=== PATIENT | male | born 1950 | race Caucasian/White ===

== ENCOUNTER 2016-11-03 14:15 | Inpatient (IN) | payer OTHER ==
[2017-02-22 11:30] LABS: % IMMATURE GRANULYOCYTES 1.2 % (0.0-1.1); ABSOLUTE IMMATURE GRANULOCYTES 0.07 10^3/uL (0.00-0.10); ADD DIFF? NO; ADD MORPH? NO; ADD SCAN? NO; ATYPICAL LYMPHOCYTE FLAG 0 (0-99); FRAGMENT RBC FLAG 0 (0-99); HEMATOCRIT 46.1 % (40.0-51.0); HEMOGLOBIN 16.1 g/dL (13.7-17.5); LEFT SHIFT FLG 10 (0-99); LIPEMIA HEMOLYSIS FLAG 90 (0-99); MEAN CELL HEMOGLOBIN 30.4 pg (27.9-34.1); MEAN CELL HEMOGLOBIN CONCENTR. 34.9 g/dL (32.4-36.7); MEAN CELL VOLUME 87.1 fL (81.5-99.8); MEAN PLATELET VOLUME 9.7 fL (8.7-11.7); PLATELET CLUMPS FLAG 0 (0-99); PLATELET COUNT 141 10^3/uL (150-400); RED BLOOD CELL COUNT 5.29 10^6/uL (4.40-6.38); RED CELL DISTRIBUTION WIDTH 13.7 % (11.5-15.2)
[2017-03-11] MEDS ORDERED: TRANEXAMIC ACID 3,000 MG in NS 50 ML IRR ONE (06:00)
[2017-03-11] MEDS ORDERED: ROPIVACAINE 0.2% 80 MG, EPINEPHrine 0.2 MG, KETOROLAC TROMETHAMINE 30 MG in BAG 0 ML IU ONE (06:00)
[2017-03-11] MEDS ORDERED: VANCOMYCIN 1 GM VIAL ONE (06:57)
[2017-03-11] MEDS ORDERED: TRANEXAMIC ACID 3,000 MG/50 ML BAG IRR ONE (06:57)
--- NOTE | 2017-03-11 08:16 | PDHPUP ---
History & Physical Update H&P update statement: This history and physical update is based on an assessment of the patient which was completed after admission or registration (within 24 hours), but prior to the surgery/procedure. H&P update: H&P reviewed & patient examined, no change in patient's condition since H&P completed
[2017-03-11] MEDS ORDERED: DEXAMETHASONE 4 MG/ML VIAL IVP ONE (08:35)
[2017-03-11] MEDS ORDERED: LR 1,000 ML IV ONE (08:35)
[2017-03-11] MEDS ORDERED: FAMOTIDINE 20 MG TAB PO ONE (08:35)
[2017-03-11] MEDS ORDERED: ACETAMINOPHEN 325 MG TAB PO ONE (08:35)
[2017-03-11] MEDS ORDERED: LIDOCAINE 1% 2 ML INJ ID PRN (08:35)
[2017-03-11] MEDS ORDERED: ceFAZolin 2 GM/DEXTROSE 100 ML IV ONE (08:35)
--- NOTE | 2017-03-11 09:54 | PDANEPAE ---
ANE History of Present Illness left knee osteoarthritis ANE Past Medical History - Cardiovascular History Hx Hypertension: Yes Hx Arrhythmias: No Hx Chest Pain: No Hx Coronary Artery / Peripheral Vascular Disease: No Hx CHF / Valvular Disease: No Hx Palpitations: No - Pulmonary History Hx COPD: No Hx Asthma/Reactive Airway Disease: No Hx Recent Upper Respiratory Infection: No Hx Oxygen in Use at Home: No Hx Sleep Apnea: Yes Sleep Apnea Screening Result - Last Documented: Positive Pulmonary History Comment: CPAP MACHINE NO 02 BLEED - Neurologic History Hx Cerebrovascular Accident: No Hx Seizures: No Hx Dementia: No Neurologic History Comment: TIA FEB 2014 - Endocrine History Hx Diabetes: No - Renal History Hx Renal Disorders: Yes Renal History Comment: BLADDER PROBLEMS. OAP TREATED WITH BOTOX. PT SELF CATHS 3 X DAILY - Liver History Hx Hepatic Disorders: No - Neurological & Psychiatric Hx Hx Neurological and Psychiatric Disorders: Yes Neurological / Psychiatric History Comment: DEPRESSION, ANXIETY. - Cancer History Hx Cancer: No - Congenital Disorder History Hx Congenital Disorders: No - GI History Hx Gastrointestinal Disorders: Yes Gastrointestinal History Comment: GERD,REFLUX, 2013 COLITIS - Other Health History Other Health History: BRUISES EASILY - Chronic Pain History Chronic Pain: No - Surgical History Prior Surgeries: SBO 2011, 2 MODIFIED TURPS ANE Review of Systems Review of Systems: - Exercise capacity METS (RN): 4 METS ANE Patient History - Allergies Allergies/Adverse Reactions: CONTRAST Allergy (Intermediate, Uncoded 02/21/17 10:20) Vomiting - Home Medications Home Medications: Tamsulosin HCl [Flomax 0.4 MG (*)] 0.4 mg PO DAILY 08/13/09 [Last Taken Unknown] Acyclovir [Zovirax 400 mg (*)] 400 mg PO DAILY 09/21/09 [Last Taken Unknown] Atenolol [Tenormin 25 mg (*)] 25 mg PO HS 02/14/17 [Last Taken 03/10/17 21:00] Atorvastatin Calcium [Lipitor 40 mg (*)] 40 mg PO DAILY 02/14/17 [Last Taken 11/20 06:00] Citalopram [CeleXA] 20 mg PO DAILY 02/14/17 [Last Taken 03/11/17 06:00] Esomeprazole Magnesium [Nexium 24Hr] 22.3 mg PO DAILY 02/14/17 [Last Taken Unknown] Herbals/Supplements -Info Only 1 ea PO DAILY 02/14/17 [Last Taken 02/25/17] Mesalamine [Lialda] 2.4 gm PO DAILY@12 02/14/17 [Last Taken 02/25/17] Mirtazapine [Remeron] 30 mg PO HS 02/14/17 [Last Taken 03/10/17] Multivitamins [Multivitamin (*)] 1 each PO DAILY 02/14/17 [Last Taken 02/25/17] Ranitidine HCl 300 mg PO HS 02/14/17 [Last Taken 03/10/17] - NPO status NPO Since - Liquids (Date): 03/11/17 NPO Since - Liquids (Time): 06:00 NPO Since - Solids (Date): 03/10/17 NPO Since - Solids (Time): 21:00 - Smoking Hx Smoking Status: Light smoker - Family Anes Hx Family Hx Anesthesia Complications: none ANE Labs/Vital Signs - Labs Result Diagrams: 02/22/17 11:20 - Vital Signs Blood Pressure: 118/74 Heart Rate: 62 Respiratory Rate: 16 O2 Sat (%): 93 Height: 152.4 cm Weight: 81.647 kg ANE Physical Exam - Airway Neck exam: FROM Mallampati Score: Class 3 Mouth exam: normal dental/mouth exam - Pulmonary Pulmonary: no respiratory distress - Cardiovascular Cardiovascular: regular rate and rhythym - ASA Status ASA Status: II ANE Anesthesia Plan Anesthesia Plan: spinal Regional Anesthesia: adductor canal FNB
[2017-03-11] MEDS ORDERED: MIDAZOLAM 2 MG/2 ML VIAL IVP ONE (09:55)
[2017-03-11] MEDS ORDERED: fentaNYL 100 MCG/2 ML INJ ONE ×3 (10:53→13:45)
[2017-03-11] MEDS ORDERED: PROPOFOL/EMULSION 500 MG/50 ML BOTTLE IV ONE (10:53)
[2017-03-11] MEDS ORDERED: DEXAMETHASONE 4 MG/ML VIAL ONE (11:08)
[2017-03-11] MEDS ORDERED: ONDANSETRON 4 MG/2 ML VIAL ONE (11:08)
[2017-03-11] MEDS ORDERED: ROPIVACAINE HCL 150 MG/30 ML INJ ONE (11:24)
[2017-03-11] MEDS ORDERED: ONDANSETRON 4 MG/2 ML VIAL IVP PRN ×3 (11:26→13:03)
[2017-03-11] MEDS ORDERED: HYDROmorphONE/DILAUDID 1 MG/ML INJ IVP PRN ×2 (11:26→13:03)
[2017-03-11] MEDS ORDERED: NALOXONE HCL 0.4 MG/ML INJ IVP PRN ×2 (11:26→13:03)
[2017-03-11] MEDS ORDERED: PROMETHAZINE HCL 25 MG/ML INJ IVP PRN ×3 (11:26→13:03)
[2017-03-11] MEDS ORDERED: PROPOFOL 200 MG/20 ML VIAL ONE (11:51)
[2017-03-11] MEDS ORDERED: MAGNESIUM HYDROXIDE 30 ML UDCUP PO PRN (12:31)
[2017-03-11] MEDS ORDERED: METOCLOPRAMIDE 10 MG/2 ML VIAL IVP PRN (12:31)
[2017-03-11] MEDS ORDERED: DIPHENOXYLATE/ATROPINE LOMOTIL 1 TAB PO PRN (12:31)
[2017-03-11] MEDS ORDERED: diphenhydrAMINE 25 MG CAP PO PRN (12:31)
[2017-03-11] MEDS ORDERED: TEMAZEPAM 15 MG CAP PO PRN (12:31)
[2017-03-11] MEDS ORDERED: PROMETHAZINE HCL 25 MG SUPPR PR PRN (12:31)
[2017-03-11] MEDS ORDERED: ONDANSETRON DISINTEGRATING 4 MG TAB PO PRN (12:31)
[2017-03-11] MEDS ORDERED: POLYETHYLENE GLYCOL 3350 17 GM PKT PO PRN (12:31)
[2017-03-11] MEDS ORDERED: LACTULOSE 20 GM/30 ML UDCUP PO PRN (12:31)
[2017-03-11] MEDS ORDERED: BISACODYL 10 MG SUPP PR PRN (12:31)
--- NOTE | 2017-03-11 12:31 | POSTOPPROG ---
Post Op Note Date of Operation: 03/11/17 Surgeon: Thien Plascencia Lead Systems Analyst: david plascencia Anesthesiologist: dr. larkin Anesthesia: Spinal, Other (Specify) (adductor canal block) Pre-op Diagnosis: left knee OA Post-op Diagnosis: same Indication: left knee pain due to OA that failed conservative measures Procedure: L TKA robot assisted Findings: severe knee OA Inf/Abcess present in the surg proc area at time of surgery?: No EBL: 50-100
--- NOTE | 2017-03-11 12:40 | POSTANESTH ---
Post Anesthetic Evaluation Cardiovascular Status: Normal, Stable Respiratory Status: Normal, Stable Level of Consciousness/Mental Status: Can Participate in Eval Pain Control: Adequate, Prn Tx Ordered Nausea/Vomiting Control: Adequate, Prn Tx Ordered Complications Possibly Related to Anesthesia: None Noted
[2017-03-11] MEDS ORDERED: LR 1,000 ML IV SCH (13:00)
[2017-03-11] MEDS ORDERED: fentaNYL 100 MCG/2 ML INJ IVP PRN (13:03)
[2017-03-11] MEDS ORDERED: HYDROCODONE/APAP 5/325 TAB PO PRN (13:03)
[2017-03-11] MEDS: fentaNYL 100 MCG/2 ML INJ IVP PRN ×3 (13:06→13:49)
[2017-03-11] MEDS ORDERED: MIDAZOLAM 2 MG/2 ML VIAL ONE (13:57)
[2017-03-11] MEDS ORDERED: MIDAZOLAM 2 MG/2 ML VIAL IVP PRN (14:05)
[2017-03-11 15:05] VITALS: RESP 16
[2017-03-11] MEDS: oxyCODONE IR 5 MG TAB PO PRN ×3 (15:09→21:11)
[2017-03-11] MEDS: ACETAMINOPHEN 325 MG TAB PO SCH (17:56)
[2017-03-11] MEDS: ceFAZolin 2 GM/DEXTROSE 100 ML IV SCH (17:57)
[2017-03-11] MEDS: CYCLOBENZAPRINE 10 MG TAB PO PRN (17:57)
[2017-03-11] MEDS: SENNOSIDES/DOCUSATE SODIUM TAB PO SCH (19:59)
[2017-03-11] MEDS: ASPIRIN 325 MG TAB PO SCH (19:59)
[2017-03-11] MEDS: FAMOTIDINE 20 MG TAB PO SCH ×2 (19:59→20:13)
[2017-03-11] MEDS ORDERED: ATENOLOL 25 MG TAB PO SCH (21:00)
[2017-03-11] MEDS ORDERED: MIRTAZAPINE 30 MG TAB PO SCH (21:00)
[2017-03-12] MEDS: ACETAMINOPHEN 325 MG TAB PO SCH ×3 (00:03→11:34)
[2017-03-12] MEDS: oxyCODONE IR 5 MG TAB PO PRN ×4 (00:03→11:34)
[2017-03-12] MEDS: ceFAZolin 2 GM/DEXTROSE 100 ML IV SCH (04:34)
[2017-03-12] MEDS: CYCLOBENZAPRINE 10 MG TAB PO PRN (04:35)
[2017-03-12 05:20] LABS: HEMATOCRIT 38.8 % (40.0-51.0); HEMOGLOBIN 13.6 g/dL (13.7-17.5)
[2017-03-12] MEDS: SENNOSIDES/DOCUSATE SODIUM TAB PO SCH (07:59)
[2017-03-12] MEDS: FAMOTIDINE 20 MG TAB PO SCH ×2 (08:00)
[2017-03-12] MEDS: ASPIRIN 325 MG TAB PO SCH (08:00)
[2017-03-12] MEDS ORDERED: TAMSULOSIN HCL 0.4 MG CAP PO SCH (09:00)
[2017-03-12] MEDS ORDERED: ACYCLOVIR 400 MG TAB PO SCH (09:00)
[2017-03-12] MEDS ORDERED: PANTOPRAZOLE SODIUM 40 MG TAB PO SCH (09:00)
[2017-03-12] MEDS ORDERED: CITALOPRAM 20 MG TAB PO SCH (09:00)
[2017-03-12] MEDS ORDERED: ATORVASTATIN CALCIUM 40 MG TAB PO SCH (09:00)
--- NOTE | 2017-03-12 11:27 | SOAPPROG ---
[facility]STIN Progress Note Assessment/Plan: Assessment: Madi is POD 1 s/p L TKA 1) pain management: pain is well controlled on oral pain meds. adductor canal block is still working, but starting to wear off. patient reports low pain tolerance and history of severe pain with ACL recon and knee scope for meniscus tear. Concern for patient's ability to handle pain. Educated patient about icing, elevating and that pain will worsen over the next few days, but should not be excruciating. 2) Anemia: level expected initially postop. asymptomatic. continue to monitor 3) VTE ppx: aspirin 325 mg daily for 3 weeks 4) D/c planning: d/c to home today vs tomorrow. Concern for coping skills as pain worsens throughout the day and evening. Educated patient that I would rather him stay another night in the hospital than to go home today and not be able to cope with the pain and return to the ED. Discussed with Farzaneh his nurse as well. IF patient feels confident about going home, ok for d/c later this afternoon. Plan: 03/12/17 11:24 Subjective: Madi is doing well today, denies SOB, chest pain and N/V. moderate pain this morning. patient reports severe pain with prior ACL and knee scope surgeries. states low threshold for pain. Objective: Vital Signs Temp Pulse Resp BP Pulse Ox 36.5 C 72 16 124/80 H 90 L 03/12/17 08:09 03/12/17 08:09 03/12/17 08:09 03/12/17 08:09 03/12/17 08:09 Laboratory Results 03/12/17 04:40 03/11/17 03/12/17 03/13/17 05:59 05:59 05:59 Intake Total 1000 Output Total 1450 450 Balance -450 -450 LLE: incision dressing is clean and dry, NVI, +pf/df ICD10 Worksheet Patient Problems: Problems Problem Status Onset Primary localized osteoarthritis of left knee Acute
[2017-03-12 12:13] VITALS: BP 114/68; PULSE 73; TEMP 98.7; O2SAT 92
--- NOTE | 2017-03-12 13:10 | GDS ---
[f rep st] DISCHARGE SUMMARY ADMISSION DIAGNOSIS: Left knee osteoarthritis. DISCHARGE DIAGNOSIS: Left knee osteoarthritis. PROCEDURE: Left total knee arthroplasty, robotic assisted. VTE PROPHYLAXIS: Aspirin recommended 3 weeks daily. BRIEF DESCRIPTION OF HOSPITAL STAY: Patient was admitted for an elective joint arthroplasty. The pa maggie tolerated the procedure well and has passed physical therapy. The patient was given appropriat e antibiotic prophylaxis and venous thromboembolism prophylaxis. The patient's pain was well control led on oral pain medication, patient was holding down food, and had urinated. Decision was made to d ischarge the patient. The patient was given post-operative prescriptions pre-operatively. PLAN: To follow up as scheduled in Dr. Cassidy's office, 03/31, at 9 a.m. /[id number]/MODL
--- NOTE | 2017-03-14 18:19 | GOP ---
[f rep st] OPERATIVE REPORT DATE OF OPERATION: 03/11/2017 SURGEON: David Cassidy MD [employer] MANAGER: GUNNAR Voss. ANESTHESIA: Spinal. PREOPERATIVE DIAGNOSIS: Left knee osteoarthritis. POSTOPERATIVE DIAGNOSIS: Left knee osteoarthritis. PROCEDURE PERFORMED: Left total knee arthroplasty with computer navigation, robot assist. FINDINGS: ESTIMATED BLOOD LOSS: 30 cc. INDICATIONS: This is a 66-year-old male with severe and progressive pain and deformity of the left k nee unresponsive to conservative care. The risks and benefits of surgical intervention were explained in detail. DESCRIPTION OF PROCEDURE: Total Knee Arthroplasty standard. /[id number]/MODL
== END 2017-03-12 13:24 | disposition home or self-care (01) | DRG 470 ==
LOC: F3N 03-11 07:52
PROVIDERS: ADMIT Orthopaedic Surgery; ATTEND Orthopaedic Surgery
PROC: 0SRD0JZ Replacement of Left Knee Joint with Synthetic Substitute, Open Approach (ICD-10-PCS; principal; 2017-03-11 10:15)
PROC: 8E0YXBZ Computer Assisted Procedure of Lower Extremity (ICD-10-PCS; principal; 2017-03-11 10:15)
PROC: 8E0Y0CZ Robotic Assisted Procedure of Lower Extremity, Open Approach (ICD-10-PCS; principal; 2017-03-11 10:15)
DX: M17.12 Unilateral primary osteoarthritis, left knee (principal); I10 Essential (primary) hypertension; G47.30 Sleep apnea, unspecified; Z86.73 Personal history of transient ischemic attack (TIA), and cerebral infarction without residual deficits; F41.8 Other specified anxiety disorders; K21.9 Gastro-esophageal reflux disease without esophagitis
CPT/HCPCS: 97110-GP; 97116-GP; 97161-GP; 97165-GO; C1713; G8978-GP-CI; G8978-GP-CJ; G8979-GP-CI; G8980-GP-CI; G8987-GO-CI; G8988-GO-CI; G8989-GO-CI; J0171; J0690; J1100; J1885; J2250; J2405; J2704; J2795; J3010; J3370

== ENCOUNTER → 2017-02-22 | Outpatient (CLI) | payer OTHER | LOC: FIMAGING 10:20 | PROVIDERS: ATTEND Orthopaedic Surgery | DX: Z01.818 Encounter for other preprocedural examination (principal); M17.12 Unilateral primary osteoarthritis, left knee ==